=== PATIENT | female | born 1955 | race Hispanic/Latino ===

== ENCOUNTER 2022-10-24 23:38 | Emergency (ER) | payer MEDICARE ==
[~2022-10-24] VITALS: Ht 149.9 cm; Wt 99.8 kg
[2022-10-25] MEDS ORDERED: LORAZEPAM 1 MG TAB PO ONE
[2022-10-25] MEDS ORDERED: LORAZEPAM 1 MG TAB ONE (00:02)
[2022-10-25] MEDS ORDERED: ATIVAN1 MG PO (00:49)
== END 2022-10-25 01:17 | disposition home or self-care (01) ==
LOC: ER 23:45
DX: F48.9 Nonpsychotic mental disorder, unspecified (principal); F43.21 Adjustment disorder with depressed mood; I10 Essential (primary) hypertension; E11.9 Type 2 diabetes mellitus without complications
CPT/HCPCS: 99283